=== PATIENT | female | born 1965 | race Caucasian/White ===

== ENCOUNTER 2017-08-15 15:49 | Emergency (ER) | payer BC ==
[~2017-08-15] VITALS: Ht 167.6 cm; Wt 81.6 kg
[2017-08-15] MEDS ORDERED: ASPIRIN 81 MG CHEW TAB PO ONE (16:15)
[2017-08-15 16:37] LABS: BASOPHILS % 0.2 % (0.0-1.0); EOSINOPHILS % 0.3 % (0.0-6.0); HEMATOCRIT 43.8 % (34.2-44.1); HEMOGLOBIN 14.5 g/dL (12.0-16.0); LYMPHOCYTES # (AUTO) 4.6 (1.0-3.2); LYMPHOCYTES % 38.1 % (18.0-39.1); MEAN CORPUSCULAR HEMOGLOBIN 28.6 pg (28-32); MEAN CORPUSCULAR HGB CONC 33.1 g/dL (31-35); MEAN CORPUSCULAR VOLUME 86.4 fL (81-99); MONOCYTES # (AUTO) 1.1 (0.2-0.8); NEUTROPHILS # (AUTO) 6.2 (2.1-6.9); NEUTROPHILS % 51.7 % (38.7-80.0); PLATELET COUNT 431 x10e3/uL (140-360); RED BLOOD COUNT 5.07 x10e6/uL (3.6-5.1); RED CELL DISTRIBUTION WIDTH 13.2 % (11.7-14.4)
--- NOTE | 2017-08-15 16:37 | Diagnostic Imaging Report ---
PROCEDURE: A single AP view of the chest. COMPARISON: None. INDICATIONS: HIGH BLOOD PRESSURE, LEFT SIDE CHEST PAIN FINDINGS: Lines/tubes: None. Lungs: The lungs are well inflated and clear. There is no evidence of pneumonia or pulmonary edema. Pleura: There is no pleural effusion or pneumothorax. Heart and mediastinum: The heart and the mediastinum are unremarkable. Bones: No acute bony abnormality. IMPRESSION: 1. No acute cardiopulmonary abnormalities. Telly Mcgovern M.D. Dictated by: Telly Mcgovern M.D. on 08/15/2017 at 16:38 Electronically approved by: Telly Mcgovern M.D. on 08/15/2017 at 16:38
[2017-08-15 16:46] LABS: INR 0.98; PARTIAL THROMBOPLASTIN TIME 27.5 seconds (23.8-35.5); PROTHROMBIN TIME 12.2 seconds (11.9-14.5)
[2017-08-15 16:56] LABS: ALANINE AMINOTRANSFERASE 21 IU/L (0-55); ALBUMIN 3.6 g/dL (3.5-5.0); ALBUMIN/GLOBULIN RATIO 0.9 (0.8-2.0); ALKALINE PHOSPHATASE 77 IU/L (40-150); ANION GAP 11.8 mmol/L (8-16); BLOOD UREA NITROGEN 22 mg/dL (7-26); BUN/CREATININE RATIO 28 (6-25); CALCIUM 9.8 mg/dL (8.4-10.2); CARBON DIOXIDE 29 mmol/L (22-29); CHLORIDE 104 mmol/L (98-107); CREATINE KINASE 30 IU/L (29-168); CREATININE, SERUM 0.79 mg/dL (0.57-1.11); EST GLOMERULAR FILTRATION RATE > 60 ML/MIN (60-); GLUCOSE 98 mg/dL (74-118); POTASSIUM 3.8 mmol/L (3.5-5.1); SODIUM 141 mmol/L (136-145)
--- NOTE | 2017-08-15 18:41 | Diagnostic Imaging Report ---
PROCEDURE:CT ANGIOGRAPHY CHEST WITHOUT AND WITH CONTRAST COMPARISON:None. INDICATIONS:DISSECTION TECHNIQUE:Multidetector CT scanning of the chest was performed from the level of the thoracic inlet to the upper abdomen before and after intravenous administration of 100 cc of Isovue 370. Coronal and sagittal multiplanar reformations were obtained. DISCUSSION: Aorta and proximal branches: The thoracic aorta is normal without evidence of aneurysm or dissection. There is no evidence of intramural or periaortic hematoma. There is preservation of the sinotubular junction. The innominate, proximal subclavian, and common carotid arteries are normal in branching order and size. Measurements of the aorta are as follows: 2.6 cm at the level of the aortic root, 3.2 cm in the mid ascending aorta, 2.4 cm in the mid aortic arch, 2.0 cm in the proximal descending aorta, 2.0 cm in the mid descending aorta, 1.7 cm at the level of the diaphragmatic hiatus, 1.8 cm at the level of the celiac trunk to Lungs and airways. Minimal bilateral lower lobe dependent atelectasis. No consolidation, pulmonary nodules, masses, or opacities. Airways are clear, without endobronchial lesions. Pleura: No effusion, or pneumothorax. Heart and mediastinum: Thyroid is unremarkable. Heart size is normal. No pericardial effusion. Pulmonary artery is normal in caliber. Mild atherosclerotic calcification of the proximal left coronary artery. Abdomen: Limited enhanced views of the upper abdomen show no abnormality in the liver, gallbladder, spleen, pancreas, adrenal glands, or kidneys. Bones and soft tissues: No aggressive lytic lesions. Soft tissues are grossly unremarkable. CONCLUSION: Unremarkable CT angiogram of the chest with and without contrast. No evidence of dissection or aneurysmal dilation. Telly Mcgovern M.D. Dictated by: Telly Mcgovern M.D. on 08/15/2017 at 18:41 Electronically approved by: Telly Mcgovern M.D. on 08/15/2017 at 18:41
[2017-08-15 19:27] LABS: BILIRUBIN,URINE NEGATIVE (NEGATIVE); CLARITY,URINE CLEAR (CLEAR); COLOR,URINE YELLOW (YELLOW); KETONES,URINE NEGATIVE (NEGATIVE); LEUKOCYTE ESTERASE ,URINE NEGATIVE (NEGATIVE); NITRITE,URINE NEGATIVE (NEGATIVE); PROTEIN,URINE DIPSTICK NEGATIVE (NEGATIVE); URINE UROBILINOGEN 0.2 mg/dL (0.2 - 1)
[2017-08-15 19:31] VITALS: BP 135/98
[2017-08-15 19:38] LABS: BACTERIA,URINE RARE /HPF; EPITHELIAL CELLS,URINE FEW /LPF
[2017-08-15] MEDS ORDERED: SODIUM CHLORIDE 0.9% 50ML 50 ML ONE (19:53)
[2017-08-15] MEDS ORDERED: IOPAMIDOL 370 MG/ML 200 ML INFUS..BTL INJ ONE (19:54)
== END 2017-08-15 19:43 | disposition home or self-care (01) ==
LOC: ER 15:49
DX: R07.2 Precordial pain (principal)
CPT/HCPCS: 36415; 71045; 71275; 80053; 81001; 82550; 82553; 84484; 85025; 85379; 85610; 85730; 93005; 99284; Q9967